=== PATIENT | female | born 1950 | race Asian ===

== ENCOUNTER 2023-05-01 19:01 | Emergency (ER) | payer OTHER ==
[~2023-05-01] VITALS: Ht 157.5 cm; Wt 42.2 kg
[2023-05-01] MEDS ORDERED: ACETAMINOPHEN 325 MG TAB PO ONE (19:45)
[2023-05-01 22:23] VITALS: BP 105/81; PULSE 82; RESP 16; TEMP 97.9; O2SAT 100
== END 2023-05-01 22:32 | disposition home or self-care (01) ==
LOC: ER 19:10
DX: S16.1XXA Strain of muscle, fascia and tendon at neck level, initial encounter (principal); S39.012A Strain of muscle, fascia and tendon of lower back, initial encounter; V43.62XA Car passenger injured in collision with other type car in traffic accident, initial encounter; Y92.488 Other paved roadways as the place of occurrence of the external cause; E78.5 Hyperlipidemia, unspecified; K21.9 Gastro-esophageal reflux disease without esophagitis
CPT/HCPCS: 72050; 72100; 99283